=== PATIENT | female | born 1935 | race Caucasian/White ===

== ENCOUNTER 2020-02-07 11:08 | Emergency (ER) | payer MEDICARE, SELFPAY ==
--- NOTE | ~2020-02-07 | CT_ITS ---
EXAMINATION: CT abdomen pelvis wo con EXAM DATE: 02/07/2020 12:39 INDICATION: Low back pain. TECHNIQUE: Spiral CT of the abdomen and pelvis was performed without contrast. Axial, coronal and s agittal images were reviewed. The dose-length product (DLP) for this examination was 575.76 mGy-cm. The exposure was tailored according to patient size (auto mA exposure control), and iterative recons truction (ASIR) was used as additional dose reduction technique. There is no prior study for compari son. FINDINGS: There is a hypodensity in the left liver lobe lateral segment measuring 1.7 cm consistent w ith a cyst. The spleen, pancreas, and adrenal glands are unremarkable. There are gallstones within an otherwise unremarkable gallbladder. No evidence of obstructive biliary disease. Severe right killian al atrophy. The hydronephrosis. Uterus is retroverted and there are some small calcified fibroids. The bladder is unremarkable. There is no retroperitoneal or pelvic lymphadenopathy. There is exten sive scattered arterial sclerotic disease. There is an IVC filter. The appendix is not positively visualized. There is no pericecal inflammatory change to suggest appe ndicitis. The stomach and small bowel are unremarkable. There is moderate amount of colonic stool. There is extensive sigmoid colonic diverticulosis. There is no adjacent inflammatory change to sugg est diverticulitis. No free intraperitoneal gas. There is cardiomegaly. 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 There are no osteoblastic or osteolytic lesions identified. There is tota l right hip arthroplasty. Mild to moderate lumbar dextroscoliosis. Chronic moderate L4 burst fracture . IMPRESSION: 1. No acute intra-abdominal findings. 2. Sigmoid predominant diverticulosis. 3. Basilar interstitial lung disease. 4. Cardiomegaly. 5. Chronic L4 burst fracture. Reviewed, dictated and finalized at location A.
[2020-02-07 11:12] VITALS: BP 142/46; PULSE 85; RESP 20; TEMP 36.1; O2SAT 96
[2020-02-07 11:41] LABS: Basophils Absolute Auto 0.1 K/mm3 (0.0-0.1); Basophils Percent Auto 0.4 % (0.2-1.2); Eosinophils Absolute Auto 0.2 K/mm3 (0-0.3); Eosinophils Percent Auto 1.4 % (0-4.4); Hematocrit 40.4 % (37.0-47.0); Hemoglobin 13.2 g/dL (12.0-15.0); Immature Granulocyte Absolute 0.05 K/mm3 (0.00-0.031); Immature Granulocyte Percent A 0.4 % (0-0.5); Lymphocytes Absolute Auto 1.98 K/mm3 (0.9-3.2); Mean Corpuscular HGB Conc 32.7 g/dl (32-36); Mean Corpuscular Hemoglobin 30.1 pg (26-34); Mean Platelet Volume 10.4 fl (7.4-10.4); Monocytes Absolute Auto 0.8 K/mm3 (0.1-0.6); Monocytes Percent Auto 6.6 % (2.6-8.5); Neutrophils Absolute Auto 8.6 K/mm3 (1.3-6.7); Neutrophils Percent Auto 74.2 % (45.5-73.1); Platelet Count Result 202 k/mm3 (150-375); Red Blood Count 4.39 M/mm3 (4.2-5.4); Red Cell Distribution Width 13.7 % (11.5-14.5); White Blood Count 11.6 K/mm3 (4.5-10.0)
[2020-02-07 11:53] LABS: Alanine Aminotransferase 13 U/L (4-35); Albumin Level 4.2 g/dL (3.5-5.1); Alkaline Phosphatase 75 U/L (38-126); Aspartate Amino Transferase 22 U/L (14-36); Bilirubin,Total 0.5 mg/dL (0.2-1.3); Blood Urea Nitrogen 22 mg/dL (7-17); Carbon Dioxide 30 mmol/L (22-30); Chloride 95 mmol/L (98-107); Estimated CRCL calculation 35 ml/min; Estimated Glomerular Filt Rate 53; Glucose 199 mg/dL (65-105); Potassium 4.7 mmol/L (3.4-5.0); Sodium 134 mmol/L (137-145)
--- NOTE | 2020-02-07 11:56 | ED.BACK ---
HPI - Back Pain/Injury General Chief Complaint: Back Pain/Injury <Yen Bray PA-C - Last Filed: 02/07/20 14:21> Stated Complaint: back pain <CINTHYA Capone Last Filed: 02/07/20 14:21> Time Seen by Provider: 02/07/20 11:37 <CINTHYA Capone Last Filed: 02/07/20 14:21> Source: patient and family <CINTHYA Capone Last Filed: 02/07/20 14:21> Mode of arrival: wheelchair <CINTHYA Capone Last Filed: 02/07/20 14:21> Limitations: no limitations <CINTHYA Capone Last Filed: 02/07/20 14:21> History of Present Illness HPI Narrative: This is an 84-year-old female that presents the emergency department for low back pain x2 days. No known injury or trauma. Reports pain originally was on the left side of the low back and is now across the low back. Pain is worse with movement and relieved with rest. Also reports she has been having some dysuria. Reports she is having trouble getting urine out. Denies fever, abdominal pain, hematuria, nausea or vomiting. <CINTHYA Capone Last Filed: 02/07/20 14:21> Related Data Home Medications: Home Medications Medication Instructions Recorded Confirmed albuterol sulfate [ProAir HFA] INHALATION 02/07/20 budesonide-formoterol [Symbicort] INHALATION 02/07/20 carvedilol 02/07/20 ferrous sulfate 325 mg PO BID 02/07/20 furosemide 02/07/20 insulin glargine [Lantus Solostar unit SUBCUT 02/07/20 U-100 Insulin] metformin mg 02/07/20 nifedipine PO 02/07/20 02/07/20 nitroglycerin 0.4 mg SUBLINGUAL Q5-15M PRN 02/07/20 nystatin TOPICAL 02/07/20 pantoprazole PO 02/07/20 sacubitril-valsartan [Entresto] 02/07/20 simvastatin mg 02/07/20 tiotropium bromide [Spiriva with INHALATION 02/07/20 HandiHaler] triamcinolone acetonide TOPICAL 02/07/20 <Yen Bray PA-C - Last Filed: 02/07/20 14:21> Allergies/Adverse Reactions: Allergies Allergy/AdvReac Type Severity Reaction Status Date / Time no anticoagulants per pt AdvReac Other Uncoded 02/07/20 11:29 family <Yen Bray PA-C - Last Filed: 02/07/20 14:21> Review of Systems Review of Systems: Narrative: CONSTITUTIONAL: Denies fever GASTROINTESTINAL: Denies abdominal pain, nausea, vomiting GENITOURINARY: Reports dysuria. Denies hematuria. SKIN: Denies rash MUSCULOSKELETAL: Reports back pain, joint pain, and myalgia. NEUROLOGIC: Denies numbness, or weakness. <Yen Bray PA-C - Last Filed: 02/07/20 14:21> All systems reviewed & are unremarkable except as noted in HPI and below <Yen Bray PA-C - Last Filed: 02/07/20 14:21> [facility] Past Medical History Medical History: Medical History (Updated 02/07/20 @ 14:19 by Yen Bray PA-C) History of CHF (congestive heart failure) History of gastroesophageal reflux (GERD) History of hyperlipidemia History of hypertension History of pulmonary hypertension <Yen Bray PA-C - Last Filed: 02/07/20 14:21> Exam Narrative: Exam Narrative: GENERAL: Elderly, well-nourished, and in no acute distress. HEAD: Normocephalic, atraumatic. EYES: EOMI. CHEST: Clear to auscultation. No respiratory distress. No wheezes rales or rhonchi HEART: Regular rate and rhythm. No murmur heard. Normal peripheral pulses. ABDOMEN: Soft, nontender, nondistended, normal active bowel sounds. No CVA tenderness EXTREMITIES: Normal range of motion. No edema. Strength equal in bilateral lower extremities SKIN: Warm, dry, no rash. NEURO: No focal deficits. Alert and oriented x3. PSYCH: Normal mood and affect <Yen Bray PA-C - Last Filed: 02/07/20 14:21> Course Vital Signs Vital signs: Vital Signs Temperature 97.0 F L 02/07/20 11:12 Pulse Rate 85 02/07/20 11:12 Respiratory Rate 20 02/07/20 11:12 Blood Pressure 142/46 H 02/07/20 11:12 Pulse Oximetry 96 02/07/20 11:12 Temperature 97.0 F L 02/07/20 11:12 Pulse Rate 85 02/07/20 11:12 R
[2020-02-07 12:21] LABS: CRP 2.2 mg/dL (<1.0)
[2020-02-07 12:39] LABS: Add Urine Microscopic? YES; Appearance Urine Cloudy (Clear); Bacteria Urine Trace /hpf; Bilirubin Urine Negative (Negative); Blood Urine Negative (Negative); Color Urine Yellow (Yellow); Glucose Urine UA Negative (Negative); Ketones Urine Negative (Negative); Leukocyte Esterase Ur 2+ LEU/UL (Negative); Mucus Urine Rare /lpf; Nitrate Urine Positive (Negative); Protein Urine Negative (Negative); RBC Urine 0-2 /hpf (0-2); Specific Grav Ur 1.011 (1.001-1.035); Urobilinogen Urine Negative mg/dL (<2.0); WBC Urine 51-75 /hpf
[2020-02-07 14:45] VITALS: BP 122/78; PULSE 76; RESP 20; O2SAT 99
== END 2020-02-07 14:45 | disposition home or self-care (01) ==
PROVIDERS: Physician Assistant; Emergency Provider General Practice
DX: N30.00 Acute cystitis without hematuria (principal); I50.9 Heart failure, unspecified; K21.9 Gastro-esophageal reflux disease without esophagitis; E78.5 Hyperlipidemia, unspecified; I11.0 Hypertensive heart disease with heart failure; I27.20 Pulmonary hypertension, unspecified; I51.7 Cardiomegaly; K57.30 Diverticulosis of large intestine without perforation or abscess without bleeding; J84.9 Interstitial pulmonary disease, unspecified; Z79.4 Long term (current) use of insulin; Z79.84 Long term (current) use of oral hypoglycemic drugs
CPT/HCPCS: 36415; 51701; 74176; 80053; 81001; 85025; 86140; 87086; 87088; 99284; A9270

== ENCOUNTER 2020-02-07 17:58 | Emergency (ER) | payer MEDICARE, SELFPAY ==
[2020-02-07 18:05] VITALS: BP 97/57; PULSE 104; RESP 26; TEMP 37.2; O2SAT 98
--- NOTE | 2020-02-07 19:28 | ED.ALLEREA ---
HPI - Allergic Reaction General Chief complaint: Allergic Reaction Stated complaint: Allergic reaction Time Seen by Provider: 02/07/20 19:04 History of Present Illness HPI narrative: Seen here earlier today and diagnosed with a UTI. Started on Bactrim. Shortly after the first dose she developed chills, weakness, and shaking. She had a similar reaction once in the past when she was taking Bactrim. On review of the chart she had a previous UTI with E. coli that was sensitive to Augmentin. She has taken this before without incident. Related Data Home Medications Medication Instructions Recorded Confirmed albuterol sulfate [ProAir HFA] INHALATION 02/07/20 budesonide-formoterol [Symbicort] INHALATION 02/07/20 carvedilol 02/07/20 ferrous sulfate 325 mg PO BID 02/07/20 furosemide 02/07/20 insulin glargine [Lantus Solostar unit SUBCUT 02/07/20 U-100 Insulin] metformin mg 02/07/20 nifedipine PO 02/07/20 02/07/20 nitroglycerin 0.4 mg SUBLINGUAL Q5-15M PRN 02/07/20 nystatin TOPICAL 02/07/20 pantoprazole PO 02/07/20 sacubitril-valsartan [Entresto] 02/07/20 simvastatin mg 02/07/20 tiotropium bromide [Spiriva with INHALATION 02/07/20 HandiHaler] triamcinolone acetonide TOPICAL 02/07/20 Allergies Allergy/AdvReac Type Severity Reaction Status Date / Time no anticoagulants per pt AdvReac Other Uncoded 02/07/20 11:29 family Review of Systems Review of Systems: All systems reviewed & are unremarkable except as noted in HPI and below Constitutional: Constitutional: Reports chills and Reports weakness ENT: Reports dizziness Respiratory: Respiratory: Denies dyspnea Genitourinary: Genitourinary: Reports flank pain PMFSH Past Medical History Medical History History of CHF (congestive heart failure) History of gastroesophageal reflux (GERD) History of hyperlipidemia History of hypertension History of pulmonary hypertension Social History Social History (Updated 02/08/20 @ 03:31 by Emir Springer MD) Living arrangements: with family Exam Const: General: healthy appearing, no acute distress and alert Nutritional Appearance: well nourished Orientation/consciousness: patient oriented x3 HENMT: Head: normal to inspection Resp: Effort & Inspection: normal respiratory effort Auscultation: clear to auscultation bilaterally Cardio: Rate: regular rate Rhythm: regular rhythm GI: GI Palp: Yes Soft to palpation and No Tenderness to palpation present (GI) Skin: General skin exam: normal color Neuro: General: patient oriented x3 and moves all extremities Speech: normal speech Course Vital Signs Vital signs: Vital Signs Temperature 37.2 C 02/07/20 18:05 Pulse Rate 104 H 02/07/20 18:05 Respiratory Rate 26 H 02/07/20 18:05 Blood Pressure 97/57 L 02/07/20 18:05 Pulse Oximetry 98 02/07/20 18:05 Temperature 36.6 C 02/07/20 20:09 Pulse Rate 79 02/07/20 20:09 Respiratory Rate 19 02/07/20 20:09 Blood Pressure 113/79 02/07/20 20:09 Pulse Oximetry 100 02/07/20 20:09 MDM - Allergic Reaction MDM Narrative Medical decision making narrative: Her symptoms may be a reaction to the medication or smyptoms of infection. I will switch her to Augmentin. Medical Records Attestation: I reviewed the patient's medical records. Lab Data Attestation: I reviewed the patient's lab results. Imaging Data Attestation: I personally reviewed and interpreted this imaging study as follows: My impression: Reviewed CT results from earlier visit. Discharge Plan Discharge Clinical Impression: Urinary tract infection Patient Disposition: Home, Self-Care Condition: Stable Instructions: Antibiotic Form, Urinary Tract Infection in Women (ED) Prescriptions: New amoxicillin-pot clavulanate [Augmentin] 875-125 mg tablet 1 tablet PO Q12H Qty: 14 RF: 0 No Action furosemide 40 mg tablet RF: 0 c
[2020-02-07 20:09] VITALS: BP 113/79; PULSE 79; RESP 19; TEMP 36.6; O2SAT 100
== END 2020-02-07 20:10 | disposition home or self-care (01) ==
PROVIDERS: Emergency Provider Emergency Medicine
DX: N39.0 Urinary tract infection, site not specified (principal); I50.9 Heart failure, unspecified; K21.9 Gastro-esophageal reflux disease without esophagitis; E78.5 Hyperlipidemia, unspecified; I27.20 Pulmonary hypertension, unspecified; I11.0 Hypertensive heart disease with heart failure; Z79.4 Long term (current) use of insulin; Z79.84 Long term (current) use of oral hypoglycemic drugs
CPT/HCPCS: 99283